=== PATIENT | female | born 2005 | race Caucasian/White ===

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

== ENCOUNTER 2023-12-12 18:37 | Emergency (ER) | payer BC, SELFPAY ==
--- NOTE | 2023-12-12 18:58 | ED.URI ---
HPI - URI/Sore Throat General Chief Complaint: Upper Respiratory Infection Stated Complaint: Cough, Earache Time Seen by Provider: 12/12/23 19:12 Source: patient Mode of arrival: ambulatory Limitations: no limitations History of Present Illness HPI Narrative: Jacqueline is a 18-year-old female patient presenting to the clinic today with complaints of cough, congestion, sore throat, and bilateral earache x2 days. She reports no known fever or chills. MD elicited complaint: sore throat and nasal congestion Related Data Allergies Allergy/AdvReac Type Severity Reaction Status Date / Time tree nut Allergy Unknown POSSIBLY/MOM Verified 12/12/23 19:14 IS ALLERGIC TO TREE NUTS Sulfa (Sulfonamide AdvReac Mild Hives Verified 12/12/23 19:14 Antibiotics) Review of Systems Review of Systems: Pertinent positives per HPI. Patient denies any fever, chills, rash, headache, visual changes, dizziness, shortness of breath, chest pain, palpitations, nausea, vomiting, diarrhea, constipation, abdominal pain, or any urinary issues. PMFSH Past Medical History Medical History BAKARI (generalized anxiety disorder) Panic attacks Family History Family History Other Diabetes mellitus Social History Social History Social History: Student Smoking status: Never smoker Second hand tobacco smoke exposure: No Alcohol intake: never Substance use: never Substance use type: does not use Lack of Transportation: No Lack of Food: Never True Current Housing: I Have Housing Concerned About Future Housing: No Difficulty Paying Gas/Electric Bills: No Difficulty Paying for Meds: No Currently Unemployed: YES Education: Bachelor's Degree Difficulty w/ Childcare or Family Care: No Living arrangements: with family Occupation/Education: student Gender identity (if verbalized by the patient): Female Sexual Orientation (if Verbalized by the Patient): Straight or Heterosexual Spiritual care concerns: No Agree to blood products: Yes Comments At the time of my signature, I reviewed and agree with the nursing past medical, surgical, social, and family history. There is no relevant family history pertinent to the patient complaint. Exam Narrative: General: Well-developed, well nourished, in no apparent distress Head: Normocephalic, atraumatic Eyes: Pupils equally round and reactive to light bilaterally, EOM intact, sclera and conjunctive clear, no discharge, lids normal Ears: TMs intact and clear, ear canals clear, no drainage, grossly hearing normal. Nose: Nares patent, no discharge, no inflammation, no sinus tenderness. Mouth: Oral pharynx without lesions or masses, good dentition, MMM. Neck: Supple, trachea midline, no enlargement of anterior or posterior cervical nodes, no thyroid masses or goiter palpable. Cardio: Regular rate and rhythm, s1 and s2 normal, no murmur appreciated. Resp: Clear to auscultation bilaterally, no rhonchi, rales, wheezing or rubs Course Course Emergency Course: Portions of this record may have been created with voice recognition software. At the time of visit patient is resting comfortably on the exam table. Patient appears to be nontoxic. Labs: Strep test was negative. We will send for culture. Plan: I suspect patient has URI/pharyngitis/bilateral otalgia. Supportive measures were discussed with the patient and they voiced understanding discharge instructions and agrees to treatment plan. Return precautions reviewed Level of Care: Express Care Visit Vital Signs Vital signs: Vital signs reviewed MDM - URI/Sore Throat Differential Diagnosis Differential diagnosis: Likely upper respiratory infection, otitis media, sinusitis, viral infection, bronchitis, influenza, pharyngiti
[2023-12-12 19:14] VITALS: BP 135/90; PULSE 96; RESP 18; TEMP 36.9; O2SAT 100
== END 2023-12-12 19:36 | disposition home or self-care (01) ==
PROVIDERS: Emergency Provider Nurse Practitioner Family; PCP Family Medicine
DX: J06.9 Acute upper respiratory infection, unspecified (principal); J02.9 Acute pharyngitis, unspecified; H92.03 Otalgia, bilateral; F41.9 Anxiety disorder, unspecified; F41.0 Panic disorder [episodic paroxysmal anxiety]
CPT/HCPCS: 87081; 87880; 99213; G0463

== ENCOUNTER 2023-12-13 08:25 | Outpatient (CLI) | payer BC, SELFPAY ==
[2023-12-13 09:20] LABS: Influenza A QL RT-PCR Positive (Negative); Influenza B QL RT-PCR Negative (Negative); RSV RNA, RT-PCR Negative (Negative); SARS-CoV-2 RNA PCR Negative (Negative)
== END 2023-12-13 08:26 | disposition home or self-care (01) ==
LOC: ANHLAB 08:26
PROVIDERS: PCP Family Medicine; Visit Provider Physician Assistant
DX: J02.9 Acute pharyngitis, unspecified (principal); Z20.822 Contact with and (suspected) exposure to COVID-19
CPT/HCPCS: 87637

== ENCOUNTER 2025-05-06 10:43 | Outpatient (CLI) | payer BC, SELFPAY ==
[2025-05-06 12:11] LABS: Influenza A QL RT-PCR Negative (Negative); Influenza B QL RT-PCR Negative (Negative); SARS-CoV-2 RNA PCR Negative (Negative)
== END 2025-05-06 10:44 | disposition home or self-care (01) ==
LOC: ANHLAB 10:43
PROVIDERS: PCP Family Medicine
DX: Z20.822 Contact with and (suspected) exposure to COVID-19 (principal); J02.9 Acute pharyngitis, unspecified; R09.81 Nasal congestion
CPT/HCPCS: 87636

== ENCOUNTER 2025-08-06 10:35 | Emergency (ER) | payer OTHER, BC, SELFPAY ==
--- NOTE | 2025-08-06 10:40 | ED_ITS ---
HPI - Nausea/Vomiting/Diarrhea General Chief complaint: Nausea/Vomiting/Diarrhea Stated complaint: Vomiting Time Seen by Provider: 08/06/25 10:50 Source: patient Mode of arrival: ambulatory Limitations: no limitations History of Present Illness HPI Narrative: Jacqueline is a 19-year-old female patient presenting to the clinic today with complaints of nausea and vomiting that started around 2:00 a.m. this morning. She has reported she has vomited approximately 8-9 times. She has take new medication called filgastrim that has side effects of nausea and vomiting. She called the person who prescribed the medications and they recommend she be evaluated so she can get some ondansetron. She is reports some mild lower abdomen cramping. LMP ended 3 days ago. No concern for Related Data Home Medications ?Medication ?Instructions ?Recorded ?Confirmed ?Last Taken ?Type norgestimate-ethinyl estradiol 1 tablet PO DAILY 09/2407/16/25 Unknown History 0.18mg/0.215mg/0.25mg-0.035mg(28)tablet (Tri-Sprintec (28)) Allergies Allergy/AdvReac Type Severity Reaction Status Date / Time tree nut Allergy Unknown POSSIBLY/MOM Verified 08/06/25 10:48 IS ALLERGIC TO TREE NUTS Sulfa (Sulfonamide AdvReac Mild Hives Verified 08/06/25 10:48 Antibiotics) Review of Systems Review of Systems: Pertinent positives per HPI. Patient denies any fever, chills, rash, headache, visual changes, dizziness, cough, shortness of breath, chest pain, palpitations, diarrhea, constipation, or any urinary issues. [facility] Past Medical History Medical History Panic attacks BAKARI (generalized anxiety disorder) Family History Family History Other Diabetes mellitus Social History Social History Social History: Student Smoking status: Never smoker Second hand tobacco smoke exposure: No Alcohol intake: never Substance use: never Substance use type: does not use Do You Feel Safe in your Home?: Yes Lack of Transportation: No Lack of Food: Never True Current Housing: I Have Housing Concerned About Future Housing: No Difficulty Paying Gas/Electric Bills: No Difficulty Paying for Meds: No Currently Unemployed: YES Education: Bachelor's Degree Difficulty w/ Childcare or Family Care: No Living arrangements: with family Occupation/Education: student Gender identity (if verbalized by the patient): Female Sexual Orientation (if Verbalized by the Patient): Straight or Heterosexual Spiritual care concerns: No Agree to blood products: Yes Comments At the time of my signature, I reviewed and agree with the nursing past medical, surgical, social, and family history. There is no relevant family history pertinent to the patient complaint. Exam Narrative: General: Well-developed, well nourished, in no apparent distress Head: Normocephalic, atraumatic Eyes: Pupils equally round and reactive to light bilaterally, EOM intact, sclera and conjunctive clear, no discharge, lids normal Ears: TMs intact and clear, ear canals clear, no drainage, grossly hearing normal. Nose: Nares patent, no discharge, no inflammation, no sinus tenderness. Mouth: Oropharynx without lesions or masses, good dentition, MMM. Neck: Supple, trachea midline, no enlargement of anterior or posterior cervical nodes, no thyroid masses or goiter palpable. Cardio: Regular rate and rhythm, s1 and s2 normal, no murmur appreciated. Resp: Clear to auscultation bilaterally anteriorly and posteriorly, no rhonchi, rales, wheezing or rubs Abdomen: Soft, pliable, bowel sounds present in all quadrants, generalized tender to palpation, no organomegly, no CVAT tenderness. Course Course Emergency Course: Portions of this record may have been created with voice recognition software. Level of Care: Express Care Visit Vital Signs Vital signs: Vital Signs Temperature 36.7 C 08/06/25 10:45 Pulse Rate 96 08/06/25 10:45 Respiratory Rate 18 08/06/25 10:45 Blood Pressure 109/75 08/06/25 10:45 Pulse Oximetry 99 08/06/25 10:45 Oxygen Delivery Room Air 08/06/25 10:45 Temperature 36.7 C 08/06/25 10:45 Pulse Rate 96 08/06/25 10:45 Respiratory Rate 18 08/06/25 10:45 Blood Pressure 109/75 08/06/25 10:45 Pulse Oximetry 99 08/06/25 10:45 Oxygen Delivery Room Air 08/06/25 10:45 Vital signs reviewed MDM - Nausea/Vomiting/Diarrhea MDM Narrative Medical decision making narrative: At the time of visit patient is resting comfortably on the exam table. Patient appears to be nontoxic. complaints of nausea and vomiting that started around 2:00 a.m. this morning. She has reported she has vomited approximately 8-9 times. She has take new medication called filgastrim that has side effects of nausea and vomiting. She called the person who prescribed the medications and they recommend she be evaluated so she can get some ondansetron. She is reports some mild lower abdomen cramping. LMP ended 3 days ago. No concern for . States she is pretty nauseous at the time of exam. Ondansetron 8 mg ODT ordered. On exam patient has soft pliable abdomen, bowel sounds present all 4 quadrants, no organomegaly, mild generalized tenderness to the abdomen, no CVAT tenderness. Plan: I suspect patient has acute nausea vomiting due to drug side effect. Prescription for Zofran was sent to the pharmacy. Supportive measures were discussed with the patient and they voiced understanding discharge instructions and agrees to treatment plan. Return precautions reviewed Differential Diagnosis Differential diagnosis: Likely food poisoning, gastroenteritis, drug-induced nausea and vomiting and dehydration Discharge Plan Discharge Clinical Impression: Drug-induced nausea and vomiting Nausea & vomiting Qualifiers: Vomiting type: unspecified Qualified Code(s): R11.2 - Nausea with vomiting, unspecified Patient Disposition: Home Condition: Stable Instructions: Antibiotic Form, Acute Nausea and Vomiting (ED) Additional Instructions: Take ondansetron as prescribed Increase fluids and stay well hydrated Clear liquids and advance as tolerated to a bland diet Follow-up with your primary care doctor as needed Patient Language: Latvian Prescriptions: New ondansetron 8 mg tablet,disintegrating 8 mg PO Q8H PRN (Reason: nausea and vomiting) 3 Days Qty: 10 0RF No Action hydroxyzine HCl 10 mg tablet 10 mg PO TID PRN (Reason: anxiety) Qty: 30 2RF norgestimate-ethinyl estradiol [Tri-Sprintec (28)] 0.18/0.215/0.25 mg-35 mcg (28) tablet 1 tablet PO DAILY fluticasone propionate 50 mcg/actuation spray,suspension 1 spray intranasal DAILY Qty: 16 0RF Rx Instructions: administer into each nostril escitalopram oxalate 10 mg tablet 20 mg PO DAILY Qty: 180 1RF propranolol 20 mg tablet See Rx Instructions .ROUTE .COMPLEX Qty: 270 0RF Dose Instruction: TAKE 1 TABLET BY MOUTH EVERY 8 HOURS NEEDED FOR FAST HEART RATE Rx Instructions: TAKE 1 TABLET BY MOUTH EVERY 8 HOURS NEEDED FOR FAST HEART RATE Follow-up/Referrals: Dilip Kinsey MD [[facility] Time of Disposition: 11:02 Quality NIHSS Nursing Documentation ED NIHSS nursing documentation: reviewed/agree
[2025-08-06 10:45] VITALS: BP 109/75; PULSE 96; RESP 18; TEMP 36.7; O2SAT 99
[2025-08-06] MEDS: ONDANSETRON HCL ODT 4 MG TABLET 8 MG SUBLINGUAL (11:06)
--- OUTSIDE RECORDS SUMMARY | 2025-08-06 11:21 | XMS_ITS | Clinical Summary ---
Author Organization [facility] Address [address] [place] [address] Care Team Providers Care Management Assistant Name Role Phone Unavailable Primary Care Provider Unavailabl e Immunizations Immunization Administration Dates Next Due Covid-19, Mrna, Lnp-s, Pf, 30 Mcg/0.3 Ml Dose (P fizer) 11/11/2021 Social History Tobacco Use Types Packs/Day Years Used Date Smoking Tobacco: Never Assessed Comments Unknown Sex and Gender Information Value Date Recorded Sex Assigned at Not on file Legal Sex Female 9:01 PM CDT Gender Identity Not on file Sexual Orientation Not on file Plan of Treatment Health Maintenance Due Date Last Done Comments Hepatitis C Virus (HCV) Screening 2003 Hepatitis B Immunization (2 of 3 - 3-dose series) 12/29/2004 12/01/2004 Meningococcal B Immunization (1 of 2 - Standard) 2019 Influenza Immunization (#1) 2025 12/09/2019 SARS-COV-2 Immunization ( season) 2025 11/11/2021, 03/03/2021, 02/02/2021 Respiratory Syncytial Virus (RSV) Immunization (Adult) (1 - 1-dose 75+ series) 2078 Pneumococcal Immunization Combined Completed 12/01/2004, 07/30/2004, 05/28/2004 Hepatitis A Immunization Discontinued 02/01/2008, 06/2007 Measles Mumps Rubella (MMR) Immunization Discontinued 01/21/2009, 12/01/2004 Varicella Immunization Discontinued 01/21/2009, 2004 DTaP/Tdap/Td Immunization Discontinued 2014, 01/21/2009, 02/25/2005, Additional history exists Meningococcal Immunization (ACWY) Aged Out 04/15/2015 No longer eligible based on patient's age to complete this topic TdaP Immunization Completed 04/15/2015 Human Papillomavirus (HPV) Immunization Completed 05/18/2018, 06/22/2017 Rotavirus Immunization Aged Out No lo nger eligible based on patient's age to complete this topic
--- OUTSIDE RECORDS SUMMARY | 2025-08-06 11:21 | XMS_ITS | Clinical Summary ---
Author Organization [facility] Address [address] [place] [address] Care Team Providers Care Carton Making Machinist Name Role Phone Justa Zelaya MD Primary Care Provider [phone] Source Comments [facility],non-[place] Affiliates and Associated Physician Practices is amultiple site organization consisting of ambulatory clinics and hospital sitesin [place], [place], [place] and [place]. This disclosure is being madepursuant to the Care Everywhere program and may not contain all information available regarding this patient. Last updated 18.[employer] [facility] Allergies Active Allergy Reactions Criticality Noted Date Comments Tree Nuts Unknown 01/24/2018 PT's mother has anaphylactic allergy to tree nuts Medications * Be aware that medications may not be up to date on this document. Alwaysverify current medications with the patient. No known medications Family History Medical History Relation Name Comments ADHD Neg Hx Allergies Neg Hx Aneurysm Neg Hx Asthma Neg Hx Autoimmune Disease Neg Hx Bipolar Disorder Neg Hx CVA<55(male) Neg Hx CVA<65(female) Neg Hx Cancer - Breast Neg Hx Cancer - Colon Neg Hx Cancer - Other Neg Hx Cancer - Ovarian Neg Hx Cancer - Pancreatic Neg Hx Cancer - Prostate Neg Hx Childhood Hearing Disorder Neg Hx Clotting Disorder Neg Hx Depression Neg Hx Diabetes Neg Hx Eczema Neg Hx Genetic Neg Hx Heart defect Neg Hx Hypercholesterolemia Neg Hx Hypertension Neg Hx TX<55(male) Neg Hx TX<65(female) Neg Hx Mental Health Neg Hx Migraine Neg Hx Osteoporosis Neg Hx Seizures Neg Hx Sudd. <30 Neg Hx Thyroid Disease Neg Hx Ulcerative Colitis Neg Hx Relation Name Status Comments Father Alive Mother Alive Social History Tobacco Use Types Packs/Day Years Used Date Smoking Tobacco: Never Smokeless Tobacco: Never Comments:Non smoking househo ld Comments No Sex and Gender Information Value Date Recorded Sex Assigned at Not on file Legal Sex Female 5:07 PM CDT Gender Identity Not on file Sexual Orientation Not on file Last Filed Vital Signs Vital Sign Reading Time Taken Comments Blood Pressure 110/72 01/24/2018 4:31 PM CDT Pulse 82 01/24/2018 4:29 PM CDT Temperature 37 C (98.6 F) 01/24/2018 4:29 PM CDT Respiratory Rate 16 01/24/2018 4:29 PM CDT Oxygen Saturation 99% 01/24/2018 4:29 PM CDT Inhaled Oxygen Concentration - - Weight 48.5 kg (107 lb) 01/24/2018 4:29 PM CDT Height 162.6 cm (5' 4) 01/24/2018 4:29 PM CDT Body Mass Index 18.37 01/24/2018 4:29 PM CDT Plan of Treatment Health Maintenance Due Date Last Done Comments HIV SCREENING 2018 HPV VACCINE (1 - 3-dose series) 2018 CHLAMYDIA/GONORRHEA SCREENING 2019 MENINGOCOCCAL (Group B) VACC INE SHARED DECISION-MAKING (1 of 2 - Standard) 2019 HEPATITIS C SCREENING 11/24/2021 DTAP/TDAP/TD VACCINES (1 - Tdap) 2022 HEPATITIS B VACCINE (1 of 3 - 19+ 3-dose series) 2022 DEPRESSION SCREENING 11/07/2024 COVID-19 VACCINE (1 - 2023-2 5 season) 2025 INFLUENZA VACCINE (#1) 2025 ZOSTER VACCINE (1 of 2) 2053 HIB VACCINE Aged Out No longer eligi ble based on patient's age to complete this topic MENINGOCOCCAL GROUPS A/C/Y/W VACCINE Aged Out No longer eligible b ased on patient's age to complete this topic PNEUMOCOCCAL VACCINE Aged Out No long er eligible based on patient's age to complete this topic Care Teams Carton Making Machinist Relationship Specialty Start Date End Date Justa Zelaya MD PCP - General Pediatrics 07/10/16
== END 2025-08-06 11:16 | disposition home or self-care (01) ==
PROVIDERS: Emergency Provider Nurse Practitioner Family; PCP Family Medicine
DX: R11.2 Nausea with vomiting, unspecified (principal); T45.8X5A Adverse effect of other primarily systemic and hematological agents, initial encounter; F41.0 Panic disorder [episodic paroxysmal anxiety]; F41.1 Generalized anxiety disorder
CPT/HCPCS: 99213; A9270; G0463